=== PATIENT | male | born 1965 | race Caucasian/White ===

== ENCOUNTER → 2016-08-28 | Outpatient (CLI) | payer BC ==
--- NOTE | 2016-08-28 14:30 | REP ---
RIGHT FOOT, FOUR VIEWS: HISTORY: Pain. There is no acute fracture or dislocation. The joint spaces are normal in appearance. IMPRESSION: There is no acute fracture or dislocation. Signed by Bro Mohr MD 08/28/2016 02:31 P
== END ==
LOC: M WUC 13:58
PROVIDERS: ATTEND Physician Assistant
DX: M79.671 Pain in right foot (principal)

== ENCOUNTER → 2017-01-02 | Outpatient (REF) | payer BC ==
[2017-01-02 14:45] LABS: REASON FOR REVIEW COMPREHENSIVE REVIEW
[2017-01-02 15:08] LABS: ERYTHROCYTE SEDIMENTATION RATE 7 mm/hr (0-20)
== END ==
LOC: M LAB REF 13:32
PROVIDERS: ATTEND Internal Medicine Medical Oncology
DX: D72.819 Decreased white blood cell count, unspecified (principal)

== ENCOUNTER → 2017-01-16 | Outpatient (REF) | payer BC | LOC: M LAB REF 13:23 | PROVIDERS: ATTEND Internal Medicine Medical Oncology | DX: D72.810 Lymphocytopenia (principal) ==

== ENCOUNTER → 2017-01-17 | Outpatient (CLI) | payer BC ==
--- NOTE | 2017-01-17 09:17 | REP ---
ULTRASOUND ABDOMEN WITH DUPLEX DOPPLER EVALUATION OF PORTAL VASCULATURE: Real-time sonographic evaluation of the abdomen is performed. The gallbladder demonstrates no evidence of intraluminal sludge or calculi, wall thickening or pericholecystic fluid. There is no intrahepatic or extrahepatic biliary dilatation, common bile duct measuring 4 mm in diameter. The liver is upper limits of normal in size with a length of 15.9 cm. No liver or pancreatic mass is seen. The spleen is mildly enlarged measuring 13.7 x 5.3 x 12.3 cm, splenic index is 893. There is an adjacent splenule measuring 1.6 x 1.8 x 1.9 cm. The kidneys are normal in size and echotexture, right kidney measuring 11.1 x 6.5 x 5.4 cm and the left kidney 12.4 x 7.3 x 6.0 cm. The abdominal aorta is normal in caliber with no aneurysm. There is no ascites. Real-time ultrasound evaluation and duplex Doppler evaluation of the portal vasculature is performed. The main portal vein measures 14 mm in diameter. There is normal direction of flow in the splenic vein with a peak velocity of 33 cm/s. Velocity in the superior mesenteric vein is 17 cm/s. Peak velocity in the main portal vein is 33 cm/s with normal direction of flow. There is no evidence of portal or hepatic vein thrombosis. There is loss of phasicity in the hepatic veins. Peak systolic velocity in the main hepatic artery is 83 cm/s, resistive index 0.60. IMPRESSION: Mild splenomegaly. Liver upper limits of normal in size. No liver mass. Normal direction of flow in the portal vasculature. There is dampened phasicity in the hepatic veins. Main portal vein is essentially at the upper limits of normal in diameter with minimally elevated flow velocity. This constellation of findings suggests early portal hypertension. Signed by Ayaan Villalpando MD 01/17/2017 04:52 P
== END ==
LOC: M RAD 06:49
PROVIDERS: ATTEND Nurse Practitioner Family
DX: D72.819 Decreased white blood cell count, unspecified (principal); R16.1 Splenomegaly, not elsewhere classified

== ENCOUNTER → 2017-02-07 | Outpatient (CLI) | payer BC | LOC: M SMT 09:00 | PROVIDERS: ATTEND Nurse Practitioner Women's Health | DX: R39.15 Urgency of urination (principal); Z12.5 Encounter for screening for malignant neoplasm of prostate | CPT/HCPCS: 36415; 81001; 87086; G0103 ==

== ENCOUNTER → 2018-02-21 | Outpatient (CLI) | payer OTHER | LOC: M WUC 18:48 | DX: R05 Cough (principal) ==

== ENCOUNTER 2018-12-25 20:59 | Emergency (ER) | payer OTHER ==
[~2018-12-25] VITALS: Ht 177.8 cm; Wt 86.4 kg
[2018-12-25] MEDS ORDERED: NS 1,000 ML IV ONE (21:15)
[2018-12-25 21:34] LABS: BASO % 0.4 % (0.0-1.0); EOS # 0.1 10^3/uL (0.0-0.50); EOS % 1.7 % (0.0-3.0); HEMATOCRIT 47.4 % (42.0-52.0); HEMOGLOBIN 16.1 g/dl (13.5-17.5); LYMPH % 20.9 % (24.0-44.0); MEAN CORPUSCULAR HEMOGLOBIN 30.6 pg (27.0-33.0); MEAN CORPUSCULAR VOLUME 89.9 fl (80.0-96.0); MONO # 0.5 10^3/uL (0.0-0.8); MONO % 9.9 % (0.0-5.0); NEUTROPHILS # 3.1 10^3/uL (1.8-7.7); NEUTROPHILS % 66.7 % (36.0-66.0); PLATELET COUNT, AUTOMATED 189 10^3/uL (150-450); RED BLOOD COUNT 5.27 10^6/uL (4.30-6.10); WHITE BLOOD COUNT 4.6 10^3/uL (4.0-10.0)
[2018-12-25 21:57] LABS: ALBUMIN 4.4 GM/DL (3.2-5.2); ALT/SGPT 41 U/L (12-78); BILIRUBIN,DIRECT 0.2 MG/DL (0.0-0.2); BILIRUBIN,TOTAL 1.1 MG/DL (0.2-1.0); BLOOD UREA NITROGEN 12 MG/DL (7-18); CALCIUM LEVEL 9.5 MG/DL (8.5-10.1); CARBON DIOXIDE LEVEL 24 MEQ/L (21-32); CHLORIDE LEVEL 106 MEQ/L (98-107); CK-MB VALUE MASS 2.6 NG/ML (<3.6); CPK CREATINE PHOSPHOKINASE 173 U/L (39-308); CREATININE FOR GFR 1.11 MG/DL (0.70-1.30); ETHYL ALCOHOL (ETHANOL) 0.159 % (0.000-0.010); GLOMERULAR FILTRATION RATE > 60.0 (>56); GLUCOSE, FASTING 79 MG/DL (70-100); POTASSIUM SERUM 3.8 MEQ/L (3.5-5.1); SODIUM LEVEL 140 MEQ/L (136-145); TROPONIN I < 0.02 NG/ML (< 0.10)
--- NOTE | 2018-12-25 22:07 | REPVR ---
EXAM: CT Head Without Contrast EXAM DATE/TIME: 12/25/18 (9:32pm) CLINICAL HISTORY: 53 year old male. Altered mental status / memory loss. TECHNIQUE: Imaging protocol: Axial computed tomography images of the head without contrast. Radiation optimization: All CT scans at this facility use at least one of these dose optimization techniques: automated exposure control; mA and/or kV adjustment per patient size (includes targeted exams where dose is matched to clinical indication); or iterative reconstruction. COMPARISON: MRI BRAIN of 11/07/13 FINDINGS: Brain: Unremarkable. No acute hemorrhage. Unremarkable white matter. No mass effect. Ventricles: Normal. No ventriculomegaly. Bones/joints: Unremarkable. No acute fracture. Sinuses: Visualized sinuses are unremarkable. No air-fluid levels. Mastoid air cells: Visualized mastoid air cells are well aerated. No mastoid effusion. Soft tissues: Unremarkable. IMPRESSION: No acute intracranial pathology is appreciated. Electronically signed by: Regina Steele On 12/25/2018 22:07:16 PM
[2018-12-25 23:02] LABS: AMPHETAMINES LEVEL URINE NEGATIVE (NEGATIVE); BARBITURATES URINE NEGATIVE (NEGATIVE); BENZODIAZEPINES URINE NEGATIVE (NEGATIVE); CANNABINOIDS URINE NEGATIVE (NEGATIVE); COCAINE METABOLITE URINE NEGATIVE (NEGATIVE); METHADONE URINE NEGATIVE (NEGATIVE); OPIATES URINE NEGATIVE (NEGATIVE); PHENCYCLIDINE URINE NEGATIVE (NEGATIVE)
--- NOTE | 2018-12-26 00:45 | REPVR ---
EXAM: MR Head Without Contrast EXAM DATE/TIME: 12/25/2018 11:06 PM CLINICAL HISTORY: 53 years old, male; Altered mental status/memory loss; Additional info: CVA TECHNIQUE: Imaging protocol: MR of the head without contrast. COMPARISON: MRI-Brain without Contrast 11/07/2013 9:[address] Head without contrast 12/25/2018 9:28:53 PM FINDINGS: Brain: Normal. No acute infarct. No hemorrhage. No significant white matter disease. No edema. Ventricles: Normal. No ventriculomegaly. Bones/joints: Unremarkable. Soft tissues: Normal. Sinuses: Mild ethmoid mucosal thickening. Mastoid air cells: Normal as visualized. No mastoid effusion. Orbits: Unremarkable. IMPRESSION: 1. No acute intracranial pathology. 2. Additional findings, as above. Electronically signed by: Shukri Krueger On 12/26/2018 00:45:15 AM
--- NOTE | 2018-12-26 00:48 | REPVR ---
EXAM: MR Angiogram Head Without Contrast, Arteries EXAM DATE/TIME: 12/25/2018 11:06 PM CLINICAL HISTORY: 53 years old, male; Memory loss; Type not specified; Additional info: CVA TECHNIQUE: Imaging protocol: MR angiogram head without contrast. Exam focused on the arteries. 3D rendering: MIP reconstructed images were created and reviewed. COMPARISON: MRI-Brain without Contrast 11/07/2013 9:10 AM FINDINGS: Right internal carotid artery: Unremarkable. Intracranial segment is patent with no significant stenosis. No aneurysm. Right anterior cerebral artery: Unremarkable. No occlusion or significant stenosis. No aneurysm. Right middle cerebral artery: Unremarkable. No occlusion or significant stenosis. No aneurysm. Right posterior cerebral artery: Unremarkable. No occlusion or significant stenosis. No aneurysm. Right vertebral artery: Unremarkable. No occlusion or significant stenosis. No aneurysm. Left internal carotid artery: Unremarkable. Intracranial segment is patent with no significant stenosis. No aneurysm. Left anterior cerebral artery: Unremarkable. No occlusion or significant stenosis. No aneurysm. Left middle cerebral artery: Unremarkable. No occlusion or significant stenosis. No aneurysm. Left posterior cerebral artery: Unremarkable. No occlusion or significant stenosis. No aneurysm. Left vertebral artery: Unremarkable. No occlusion or significant stenosis. No aneurysm. Basilar artery: Unremarkable. No occlusion or significant stenosis. No aneurysm. IMPRESSION: No acute findings. Electronically signed by: Shukri Krueger On 12/26/2018 00:48:32 AM
[2018-12-26 01:30] VITALS: BP 114/69
--- NOTE | 2018-12-26 05:41 | ECGEPIP ---
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
--- NOTE | 2018-12-26 07:36 | REP ---
PA and lateral chest: Comparison is 02/21/2018. The lung morrell are clear. The cardiac size is normal. The tyshawn, mediastinum, and skeletal structures are unremarkable. Impression: Negative PA and lateral chest. There is no interval change. Electronically Signed by Ayaan Choe MD 12/26/2018 07:27 A
== END 2018-12-26 02:05 | disposition home or self-care (01) ==
LOC: M ED 20:59
DX: F10.129 Alcohol abuse with intoxication, unspecified (principal); I10 Essential (primary) hypertension; E78.5 Hyperlipidemia, unspecified; F32.9 Major depressive disorder, single episode, unspecified; F41.9 Anxiety disorder, unspecified; G47.30 Sleep apnea, unspecified
CPT/HCPCS: 70450; 70544; 70551; 71046; 80048; 80076; 80307; 81001; 82550; 82553; 84443; 84484; 85025; 93005; 93041; 94760; 96360; 96361; 99285; G0480

== ENCOUNTER → 2019-12-29 | Outpatient (CLI) | payer OTHER ==
--- NOTE | 2019-12-30 23:04 | ECGEPIP ---
[facility] Test Date: 2019-12-29 Pat Name: JAMAR FRANCO JR Department: Room: - Gender: Male National Account Director: CINDI : 1965 Requested By: Lowell Lam Order Number: [id number] Reading MD: Jorge Nassar Measurements Intervals [place] Rate: 68 P: 36 IN: 178 QRS: -4 QRSD: 101 T: 29 QT: 377 QTc: 403 Interpretive Statements SINUS RHYTHM POSSIBLE RIGHT VENTRICULAR CONDUCTION DELAY Electronically Signed on 12-30-2019 23:04:18 EDT by Jorge Nassar
== END ==
LOC: M EKG 10:33
PROVIDERS: ATTEND Orthopaedic Surgery
DX: Z01.818 Encounter for other preprocedural examination (principal)

== ENCOUNTER → 2020-06-29 | Outpatient (CLI) | payer OTHER | LOC: M LABSMTC 09:43 | PROVIDERS: ATTEND Pediatrics | DX: Z20.822 Contact with and (suspected) exposure to COVID-19 (principal) ==

== ENCOUNTER → 2024-05-22 | Outpatient (CLI) | payer OTHER | LOC: M SOG 07:55 | PROVIDERS: ATTEND Physician Assistant | DX: M11.261 Other chondrocalcinosis, right knee (principal); M11.262 Other chondrocalcinosis, left knee ==

== ENCOUNTER → 2025-01-08 | Outpatient (CLI) | payer OTHER ==
[~2025-01-08] MED LIST: PROHANCE 279.3MG/ML 15ML VIAL ONE; PROHANCE 279.3MG/ML 5ML VIAL ONE
== END ==
LOC: M PLAIMG 06:57
PROVIDERS: ATTEND Physician Assistant
DX: H90.3 Sensorineural hearing loss, bilateral (principal)
CPT/HCPCS: 70553; A9576